=== PATIENT | female | born 1990 | race Caucasian/White ===

== ENCOUNTER 2020-02-20 11:30 | Emergency (ER) | payer OTHER ==
[~2020-02-20] VITALS: Ht 165.1 cm; Wt 51.7 kg
[2020-02-20 11:37] VITALS: BP 135/82; Ht 165.1 cm; Wt 51.7 kg
== END 2020-02-20 11:55 | disposition home or self-care (01) ==
LOC: ED 11:30
DX: H60.93 Unspecified otitis externa, bilateral (principal)